=== PATIENT | male | born 1990 | race Two or more races ===

== ENCOUNTER 2019-12-12 08:52 | Outpatient (CLI) | payer MEDICAID | END 2019-12-12 08:53 | disposition critical access hospital (66) | LOC: EMS 08:52 | PROVIDERS: ATTEND Surgery | DX: R19.8 Other specified symptoms and signs involving the digestive system and abdomen (principal) | CPT/HCPCS: A0425; A0429 ==

== ENCOUNTER 2019-12-12 09:08 | Emergency (ER) | payer MEDICAID ==
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
[2019-12-12] MEDS ORDERED: MAGNESIUM CITRATE 296 ML BOTTLE PO STA (09:26)
[2019-12-12 09:53] VITALS: BP 129/68
== END 2019-12-12 09:53 | disposition home or self-care (01) ==
LOC: EDUNIT# → ED 09:08
DX: K59.02 Outlet dysfunction constipation (principal)
CPT/HCPCS: 99283; A9270

== ENCOUNTER 2020-12-21 09:48 | Outpatient (CLI) | payer MEDICAID | END 2020-12-21 09:49 | disposition critical access hospital (66) | LOC: EMS 09:48 | DX: M79.604 Pain in right leg (principal) | CPT/HCPCS: A0425; A0429 ==

== ENCOUNTER 2020-12-21 10:17 | Emergency (ER) | payer MEDICAID ==
--- OUTSIDE RECORDS SUMMARY | 2020-12-21 10:41 | EXTERNAL MEDICAL SUMMARY RPT | Continuity of Care Document ---
:1990 Demographics Phone Unavailable Preferred Language Unknown Marital Status Unknown Synagogue Affiliation Unknown Race Unknown Ethnic Group Unknown Author Organization [facility] Address [address] [place] [address] Phone Allergies Encounters Medications Problems Results
[2020-12-21 10:48] VITALS: BP 178/157
[2020-12-21] MEDS ORDERED: GABAPENTIN 100 MG CAPSULE PO STA (11:33)
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
== END 2020-12-21 11:43 | disposition home or self-care (01) ==
LOC: EDUNIT# → ED 10:17
DX: M79.604 Pain in right leg (principal); G89.29 Other chronic pain
CPT/HCPCS: 99283; A9270